=== PATIENT | female | born 1975 | race Caucasian/White ===

== ENCOUNTER 2017-08-09 17:13 | Emergency (ER) | payer MEDICAID ==
[~2017-08-09] VITALS: Ht 170.2 cm; Wt 86.2 kg
--- NOTE | 2017-08-09 17:28 | PHYS DOC ---
Past History Past Medical History: Depression Smoking: Cigarettes Alcohol Use: None Adult General Chief Complaint Chief Complaint: NAUSEA/VOMITING/DIARRHEA HPI HPI Patient is a 42-year-old female who presents to the emergency department for evaluation. She states that she donated plasma earlier this morning, and has been doing a lot of running around. She states she was outside and walking in the heat, and felt weak and faint and fatigue. She denies any pain. She reports some dysuria, although she has decreased urine output. Her urine is dark yellowish in color but not dark or tea-colored. She is currently on her menses. She denies any myalgias, headache, chest pain, shortness of breath, dizziness, or lightheadedness. There are no alleviating, or exacerbating factors to her symptoms, except as noted above. Review of Systems Review of Systems Constitutional: Denies fever or chills . Does report generalized fatigue.[] Eyes: Denies change in visual acuity, redness, or eye pain [] HENT: Denies nasal congestion or sore throat [] Respiratory: Denies cough or shortness of breath [] Cardiovascular: Denies chest pain, shortness of breath, pleuritic pain, dizziness, lightheadedness. [] GI: Denies abdominal pain, nausea, vomiting, bloody stools or diarrhea [] : Denies hematuria, currently on menses. [] Musculoskeletal: Denies back pain or joint pain [] Integument: Denies rash or skin lesions [] Neurologic: Denies headache, focal weakness or sensory changes [] Endocrine: Denies polyuria or polydipsia [] All other systems were reviewed and found to be within normal limits, except as documented in this note. Family History Family History Non-Contributory Current Medications Current Medications See nursing for home medications Current Medications Medications (Trade) Dose Ordered Sig/Abbey Start Time Stop Time Status Last Admin Dose Admin Ondansetron HCl (Zofran) 4 mg 1X ONCE 08/09/17 17:15 08/09/17 17:16 UNV Sodium Chloride 1,000 ml @ 1,000 mls/hr 1X ONCE 08/09/17 17:15 08/09/17 18:14 UNV Allergies Allergies No known drug allergies Physical Exam Physical Exam PHYSICAL EXAM: CONSTITUTIONAL: Well developed, well nourished HEAD: normocephalic, atraumatic EENT: PERRL, EOMI. Conjunctivae normal color, sclerae non-icteric; moist mucous membranes. NECK: Supple, non-tender; no meningismus. LUNGS: Lungs CTA, breathing even and unlabored. Normal air movement. HEART: Regular rate and rhythm, no murmur CHEST: No deformity; non-tender ABDOMEN: The abdomen is soft, and non-tender, no masses or bruits. EXTREM: Normal ROM; no deformity, no calf tenderness. Normal pulses palpable in all extremities. There is no pedal edema. SKIN: No rash; no diaphoresis NEURO: Alert; normal speech and cognition; CN's grossly intact; strength grossly intact without focal deficit. BACK: No CVA TTP. EKG EKG Normal sinus rhythm at a rate of 76 bpm, normal axis, normal intervals, there are no acute ST changes[] Radiology/Procedures Radiology/Procedures [] Course & Med Decision Making Course & Med Decision Making 1.Dehydration 2. Leukocytosis 3. UTII Take Bactrim DS twice a day x7 daysl. Push fluids. Fruit Juices. Follow up with primary. Return if any concern.s Dragon Disclaimer Dragon Disclaimer This electronic medical record was generated, in whole or in part, using a voice recognition dictation system. Departure Departure: Impression: Primary Impression: Heat exposure Additional Impression: Dehydration Scripts Sulfamethoxazole/Trimethoprim (BACTRIM DS TABLET) 1 Each Tablet 1 TAB PO BID, #14 TAB Prov: KAYLYNN PATEL MD 08/09/17 Problem Qualifiers ARIELLE RIOS MD Aug 09, 2017 17:28 KAYLYNN PATEL MD Aug 09, 2017 19:37
[2017-08-09] MEDS ORDERED: ONDANSETRON PF 4 MG/2 ML VIAL. IV ONE (17:30)
[2017-08-09] MEDS ORDERED: IV NORMAL SALINE 1,000ML 1,000 ML IV ONE ×2 (17:30)
[2017-08-09 17:44] LABS: BASO # 0.1 x10^3/uL (0.0-0.2); BASO % 1 % (0-3); EOS # 0.1 x10^3/uL (0.0-0.7); EOS % 1 % (0-3); HEMATOCRIT 48.8 % (36.0-47.0); LYMPH % 11 % (24-48); MEAN CORPUSCULAR HEMOGLOBIN 28 pg (25-35); MEAN CORPUSCULAR HGB CONC 33 g/dL (31-37); MEAN CORPUSCULAR VOLUME 86 fL (79-100); MONO # 0.8 x10^3/uL (0.0-1.1); MONO % 4 % (0-9); NEUT # 16.1 x10^3uL (1.8-7.7); NEUT % 84 % (31-73); PLATELET COUNT 340 x10^3/uL (140-400); RED CELL DISTRIBUTION WIDTH 15.1 % (11.5-14.5); WHITE BLOOD COUNT 19.2 x10^3/uL (4.0-11.0)
--- NOTE | 2017-08-09 17:47 | EKG ---
[address] [address] Test Date: 2017-08-09 Test Time: 17:39:51 Pat Name: MILTON RITCHIE Department: Room: Gender: F Dental Practice Manager: KATY : 1975 Requested By: ARIELLE RIOS Order Number: [id number] Reading MD: Measurements Intervals [place] Rate: 76 P: 38 OR: 160 QRS: 54 QRSD: 80 T: 39 QT: 386 QTc: 434 Interpretive Statements SINUS RHYTHM QRS(T) CONTOUR ABNORMALITY CONSIDER ANTEROLATERAL MYOCARDIAL DAMAGE POSSIBLY ABNORMAL ECG RI6.01 No previous ECG available for comparison
[2017-08-09 17:55] LABS: ALBUMIN 3.1 g/dL (3.4-5.0); ALBUMIN/GLOBULIN RATIO 0.9 (1.0-1.7); CALCIUM 7.9 mg/dL (8.5-10.1); CREATININE 1.2 mg/dL (0.6-1.0); POTASSIUM 3.6 mmol/L (3.5-5.1); TOTAL BILIRUBIN 0.8 mg/dL (0.2-1.0); TOTAL PROTEIN 6.5 g/dL (6.4-8.2)
[2017-08-09 18:23] LABS: % BANDS 7 % (0-9); % BASOS 1 % (0-3); % EOS 0 % (0-5); % LYMPHS 15 % (24-48); % MONOS 3 % (0-10); % SEGS 74 % (35-66); PLATELET CLUMP PRESENT; PLT ESTIMATE ADEQUATE (ADEQUATE)
[2017-08-09 19:05] LABS: BILIRUBIN,URINE NEG (NEG); CLARITY,URINE CLEAR; COLOR,URINE YELLOW; GLUCOSE,URINE NEG (NEG)
[2017-08-09 19:06] LABS: BACTERIA,URINE MOD /HPF (0-FEW); NITRITE,URINE POS (NEG); SQUAMOUS EPITHELIAL CELL,UR OCC /LPF; U PREG PATIENT NEGATIVE (NEG); UROBILINOGEN,URINE 0.2 mg/dL (0.2 mg/dL)
[2017-08-09] MEDS ORDERED: SMZ/TMP 800/160MG TABLET. PO ONE (19:15)
[2017-08-09] MEDS ORDERED: SULF1TAB24 PO (19:15)
[2017-08-09 19:44] VITALS: BP 115/79
== END 2017-08-09 19:51 | disposition home or self-care (01) ==
LOC: ER 17:13
DX: E86.0 Dehydration (principal); D72.829 Elevated white blood cell count, unspecified; N39.0 Urinary tract infection, site not specified; T67.5XXA Heat exhaustion, unspecified, initial encounter; F17.210 Nicotine dependence, cigarettes, uncomplicated; X58.XXXA Exposure to other specified factors, initial encounter; Y93.89 Activity, other specified; Y99.8 Other external cause status; Y92.89 Other specified places as the place of occurrence of the external cause
CPT/HCPCS: 36415; 80053; 81001; 81025; 82550; 85007; 85025; 87086; 93005; 96361; 96374; 99285; J2405; J7030